=== PATIENT | male | born 2000 | race Caucasian/White ===

== ENCOUNTER 2023-10-09 13:37 | Emergency (ER) | payer MEDICAID ==
[~2023-10-09] VITALS: Ht 180.3 cm; Wt 111.0 kg
[~2023-10-09 13:37] MED LIST: AMPH10CA7
[2023-10-09 13:51] VITALS: BP 130/85; PULSE 90; RESP 17; TEMP 97.9; O2SAT 98
[2023-10-09] MEDS ORDERED: ONDA8TAB13 PO (14:16)
== END 2023-10-09 14:36 | disposition home or self-care (01) ==
LOC: ER 13:38
DX: R11.2 Nausea with vomiting, unspecified (principal); R19.7 Diarrhea, unspecified; Z91.041 Radiographic dye allergy status
CPT/HCPCS: 82948; 99283